=== PATIENT | female | born 1955 | race Two or more races ===

== ENCOUNTER 2019-11-01 10:42 | Outpatient (CLI) | payer OTHER | END 2019-11-01 10:45 | disposition home or self-care (01) | LOC: SONOGRAMA 10:42 | DX: E04.1 Nontoxic single thyroid nodule (principal) ==

== ENCOUNTER 2025-06-10 12:30 | Inpatient (IN) | payer OTHER ==
[~2025-06-10] VITALS: Ht 162.6 cm; Wt 64.4 kg
[2025-06-10] MEDS ORDERED: METFORMIN HCL1000 MG (14:34)
[2025-06-10] MEDS ORDERED: SYNTHROID137 MCG PO (14:34)
[2025-06-10] MEDS ORDERED: MULTIPLE VITAM1 EAC2 PO (14:35)
[2025-06-13] MEDS ORDERED: CEFTRIAXONE SODIUM 2,000 MG VIAL ONE ×2 (09:24→09:37)
[2025-06-13] MEDS ORDERED: METRONIDAZOLE/SODIUM CHLORIDE 500 MG/100 ML PIGGYBACK IV ONE ×2 (09:24→09:38)
[2025-06-13] MEDS ORDERED: HEMOSTATIC MATRIX 1 KIT KIT TOP ONE (11:05)
[2025-06-13] MEDS ORDERED: DIBUCAINE 30 GM TUBE ONE (11:05)
[2025-06-13] MEDS ORDERED: BUPIVACAINE HCL/MPF 0.5% 30ML VIAL ONE (11:05)
[2025-06-13] MEDS ORDERED: POVIDONE-IODINE 118 ML BOTT TOP ONE (11:05)
[2025-06-13] MEDS ORDERED: LIDOCAINE HCL 1%/EPINEPHRINE 20ML VIAL IJ ONE (11:05)
[2025-06-13] MEDS ORDERED: 0.9 % SODIUM CHLORIDE 1,000 ML IV SCH (13:00)
[2025-06-13] MEDS ORDERED: ONDANSETRON HCL 2 MG/ML VIAL IV PRN (13:00)
[2025-06-13] MEDS ORDERED: DEXTROSE 50 % IN WATER 0.5 G/ML DISP.SYRIN IV PRN ×2 (13:00→15:00)
[2025-06-13] MEDS ORDERED: HYOSCYAMINE SULFATE 0.125 MG TAB.SUBL SL SCH (13:00)
[2025-06-13] MEDS ORDERED: MORPHINE SULFATE 4 MG/ML CARTRIDGE IV PRN (13:00)
[2025-06-13] MEDS ORDERED: OxyCODONE HCL 5 MG TABLET (ROXICODONE) PO PRN (13:00)
[2025-06-13] MEDS ORDERED: ACETAMINOPHEN 500 MG GEL..CAP PO SCH (14:00)
[2025-06-13] MEDS ORDERED: INSULIN LISPRO 1,000 UNIT/10 ML UNITS SUBCUTANEO PRN (15:00)
[2025-06-13 15:18] LABS: BASO % 0.8 % (0.1-1.2); EOS # 0.09 (0.04-0.54); EOS % 1.4 % (0.7-7.0); LYMPH # 1.65 (1.18-3.74); LYMPH % 25.1 % (19.3-53.1); MEAN PLATELET VOLUME 10.00 fl (9.4-12.4); MONO # 0.40 (0.24-0.82); MONO % 6.1 % (4.7-12.5); NEUT # 4.37 (1.56-6.13); NEUT % 66.3 % (34.0-71.1); RED CELL DISTRIBUTION WIDTH 14.8 % (11.6-14.4)
[2025-06-13 15:41] LABS: BUN CREA RATIO 23.0 (7.0-25.0); CREATININE SERUM 0.44 mg/dL (0.55-1.02); GFR 141.36; GLUCOSE FASTING 133.0 mg/dL (65-100); OSMOLALITY SERUM 284.0 MOSM/KG (275-295)
[2025-06-13 16:00] VITALS: BP 127/64; O2SAT 95
[2025-06-13 16:25] VITALS: BP 126/61; O2SAT 96
[2025-06-13] MEDS ORDERED: GABAPENTIN 300 MG CAPSULE PO SCH (17:00)
[2025-06-13] MEDS ORDERED: METRONIDAZOLE/SODIUM CHLORIDE 500 MG/100 ML PIGGYBACK IV SCH (17:00)
[2025-06-13] MEDS ORDERED: CELECOXIB 200 MG CAPSULE PO SCH (21:00)
[2025-06-13] MEDS ORDERED: FAMOTIDINE/PF 20 MG/2 ML VIAL IV PUSH SCH (21:00)
[2025-06-14 00:54] VITALS: BP 109/64; O2SAT 98
[2025-06-14] MEDS ORDERED: LEVOTHYROXINE SODIUM 125 MCG TABLET PO SCH (06:00)
[2025-06-14 06:46] LABS: BASO % 0.3 % (0.1-1.2); EOS # 0.13 (0.04-0.54); EOS % 0.8 % (0.7-7.0); LYMPH # 1.35 (1.18-3.74); LYMPH % 8.3 % (19.3-53.1); MEAN PLATELET VOLUME 10.10 fl (9.4-12.4); MONO # 1.04 (0.24-0.82); MONO % 6.4 % (4.7-12.5); NEUT # 13.63 (1.56-6.13); NEUT % 83.8 % (34.0-71.1); RED CELL DISTRIBUTION WIDTH 14.6 % (11.6-14.4)
[2025-06-14 07:21] LABS: BUN CREA RATIO 13.0 (7.0-25.0); CREATININE SERUM 0.46 mg/dL (0.55-1.02); GFR 134.29; GLUCOSE FASTING 110.0 mg/dL (65-100); OSMOLALITY SERUM 285.0 MOSM/KG (275-295)
[2025-06-14] MEDS ORDERED: TRAM1TAB98 PO (07:52)
[2025-06-14] MEDS ORDERED: RECTICARE30 GM TOP (07:52)
[2025-06-14] MEDS ORDERED: LEVOFLOXACIN500 MG PO (07:53)
[2025-06-14 08:42] VITALS: BP 112/67; O2SAT 96
[2025-06-14] MEDS ORDERED: MAGNESIUM CHLORIDE 70 MG TABLET.DR PO STA (12:05)
[2025-06-14] MEDS ORDERED: ENOXAPARIN SODIUM 40 MG/0.4 ML SYRINGE SUBCUTANEO SCH (17:00)
[2025-06-15] MEDS ORDERED: ENOXAPARIN SODIUM 40 MG/0.4 ML SYRINGE SUBCUTANEO SCH (09:00)
== END 2025-06-14 13:40 | disposition home or self-care (01) | DRG 374 ==
LOC: SURH 06-13 07:00 → O/R 06-13 08:00 → SURG 06-13 08:00 → SURH 06-13 12:30 → SURG 06-13 14:44
PROVIDERS: ADMIT Surgery; ATTEND Surgery
PROC: 0DJD8ZZ Inspection of Lower Intestinal Tract, Via Natural or Artificial Opening Endoscopic (ICD-10-PCS; 2025-06-13)
PROC: 3E0T3BZ Introduction of Anesthetic Agent into Peripheral Nerves and Plexi, Percutaneous Approach (ICD-10-PCS; 2025-06-13)
PROC: 0DBP8ZZ Excision of Rectum, Via Natural or Artificial Opening Endoscopic (ICD-10-PCS; principal; 2025-06-13 07:00)
DX: C20 Malignant neoplasm of rectum (principal); I63.9 Cerebral infarction, unspecified; D12.8 Benign neoplasm of rectum; K62.82 Dysplasia of anus; D37.5 Neoplasm of uncertain behavior of rectum; D50.0 Iron deficiency anemia secondary to blood loss (chronic); E11.9 Type 2 diabetes mellitus without complications; E03.9 Hypothyroidism, unspecified
CPT/HCPCS: 0184T; 64430; 45300